=== PATIENT | female | born 1965 | race Caucasian/White ===

== ENCOUNTER 2017-07-03 17:06 | Emergency (ER) | payer OTHER, BC ==
[~2017-07-03] VITALS: Ht 167.6 cm; Wt 53.1 kg
== END 2017-07-03 19:01 | disposition home or self-care (01) ==
LOC: ED 17:06
DX: S83.91XA Sprain of unspecified site of right knee, initial encounter (principal); F17.200 Nicotine dependence, unspecified, uncomplicated; X50.1XXA Overexertion from prolonged static or awkward postures, initial encounter; Y92.89 Other specified places as the place of occurrence of the external cause; Y99.0 Civilian activity done for income or pay
CPT/HCPCS: 73560; 99283

== ENCOUNTER 2018-06-24 07:50 | Emergency (ER) | payer BC ==
[~2018-06-24] VITALS: Ht 167.6 cm; Wt 56.7 kg
[2018-06-24] MEDS ORDERED: TYLENOL EXTRA500 MG PO (08:33)
[2018-06-24] MEDS ORDERED: IBUPROFEN600 MG PO (08:33)
== END 2018-06-24 09:48 | disposition home or self-care (01) ==
LOC: ED 07:50
DX: M25.561 Pain in right knee (principal); F17.200 Nicotine dependence, unspecified, uncomplicated
CPT/HCPCS: 73560; 99283

== ENCOUNTER 2021-11-25 09:27 | Emergency (ER) | payer BC ==
[~2021-11-25] VITALS: Ht 167.6 cm; Wt 56.7 kg
[~2021-11-25 09:27] MED LIST: IBUPROFEN600 MG PO; TYLENOL EXTRA500 MG PO
== END 2021-11-25 10:38 | disposition home or self-care (01) ==
LOC: ED 09:27
DX: S93.401A Sprain of unspecified ligament of right ankle, initial encounter (principal); F17.200 Nicotine dependence, unspecified, uncomplicated; X50.9XXA Other and unspecified overexertion or strenuous movements or postures, initial encounter
CPT/HCPCS: 73610; 99283-25; A9270